=== PATIENT | female | born 1940 | race African-American/Black ===

== ENCOUNTER 2018-01-22 07:52 | Day surgery (SDC) | payer MEDICARE ==
[~2018-01-22] VITALS: Ht 167.6 cm; Wt 45.5 kg
[2018-01-22 08:10] VITALS: BP 154/76; PULSE 85; RESP 18; TEMP 98; O2SAT 99
[2018-01-22] MEDS ORDERED: ACCU20TA3 PO (08:17)
[2018-01-22] MEDS ORDERED: SYNT25TA PO (08:17)
[2018-01-22] MEDS ORDERED: METF500T PO (08:17)
[2018-01-22] MEDS ORDERED: DONE5TAB7 PO (08:17)
[2018-01-22] MEDS ORDERED: SODIUM CHLOR 0.9% 1000 ML INJ 1,000 ML IV SCH (08:30)
[2018-01-22 09:10] LABS: AUTOMATED NEUTROPHIL # 3.8 TH/MM3 (1.8-7.7); BASOPHIL % 0.8 % (0.0-2.0); EOSINOPHIL # 0.1 TH/MM3 (0-0.4); EOSINOPHIL % 0.9 % (0.0-4.0); HEMATOCRIT 35.7 % (35.0-46.0); HEMOGLOBIN 11.9 GM/DL (11.6-15.3); LYMPH % 25.4 % (9.0-44.0); LYMPHOCYTE # 1.5 TH/MM3 (1.0-4.8); MEAN CELL VOLUME 88.6 FL (80.0-100.0); MEAN CORPUSCULAR HEMOGLOBIN 29.5 PG (27.0-34.0); MEAN CORPUSCULAR HGB CONC 33.3 % (32.0-36.0); MEAN PLATELET VOLUME 8.9 FL (7.0-11.0); MONO % 8.1 % (0.0-8.0); MONOCYTE # 0.5 TH/MM3 (0-0.9); NEUT % 64.8 % (16.0-70.0); PLATELET COUNT 212 TH/MM3 (150-450); RED BLOOD COUNT 4.03 MIL/MM3 (4.00-5.30); RED CELL DISTRIBUTION WIDTH 13.2 % (11.6-17.2); WHITE BLOOD COUNT 5.9 TH/MM3 (4.0-11.0)
[2018-01-22 09:24] LABS: PROTHROMBIN TIME - PATIENT 10.4 SEC (9.8-11.6)
[2018-01-22 09:28] LABS: BICARBONATE 27.3 MEQ/L (21.0-32.0); CALCIUM 9.4 MG/DL (8.5-10.1); CREATININE 1.33 MG/DL (0.50-1.00)
[2018-01-22 10:25] VITALS: BP 151/69; PULSE 83; RESP 18; TEMP 97.3; O2SAT 99
--- NOTE | 2018-01-22 10:38 | RADRPT ---
EXAM DATE/TIME: 01/22/2018 10:11 [place] COMPARISON: No previous studies available for comparison. INDICATIONS : Patient with altered mental status in need of lumbar puncture. MEDICAL HISTORY : HTN, HLD, Diabetes, Breast cyst, Dementia, CKD, Hypothyroidism SURGICAL HISTORY : Colonoscopy, Breast surgery, Hysterectomy ENCOUNTER: Initial ACUITY: 3 months PAIN SCORE: 0/10 LUMBAR PUNCTURE TIME: 1012 hours FLUORO TIME: 1 minutes IMAGE SERIES: 1 ACCESS LEVEL: L2-3 OPENING PRESSURE: 15cm of water CLOSING PRESSURE: Not requested. FLUID: 15 cc of clear CSF was collected and sent to the laboratory for analysis. PROCEDURE : 1. Fluoroscopic guided lumbar puncture. 2. Recording of opening pressure. The risks, benefits and alternatives to the procedure were explained and verbal and written consent w as obtained. The site was prepped in sterile fashion. Full sterile technique was used, including ca p, mask, sterile gloves and gown and a large sterile sheet. Hand hygiene and 2% chlorhexidine and/or betadine/alcohol prep was utilized per protocol for cutaneous antisepsis. The skin and subcutaneous tissues were infiltrated with local anesthetic solution. With fluoroscopic guidance the lumbar thecal sac was punctured at the above level described above and the opening pressure was recorded. The above described fluid was removed without difficulty. The patient tolerated the procedure well and there were no complications. CONCLUSION: Uncomplicated fluoroscopically guided lumbar puncture with pressures as above. Inderjit Garcia MD on January 22, 2018 at 10:36 Board Certified Radiologist. This report was verified electronically.
[2018-01-22 11:40] VITALS: BP 138/61; PULSE 62; RESP 18; O2SAT 100
[2018-01-22 11:42] LABS: SUPERNATE COLOR TUBE #1 CLEAR (CLEAR)
[2018-01-22 11:43] LABS: CSF LYMPHOCYTES 0 %; CSF NEUTROPHILS 0 %; RBC TUBE #4 2 /MM3; WBC TUBE #4 0 /MM3 (0-10)
[2018-01-22 12:00] VITALS: BP 147/80; PULSE 82; RESP 20; O2SAT 99
[2018-01-25 10:33] LABS: CSF CRYPTOCOCCUS AG CONF ND (NOT DETECTD)
[2018-01-26 23:53] LABS: VDRL CSF NON-REACTIVE (NON-REACTVE)
[2018-01-27 23:53] LABS: CSF CRYPTOCOCCUS ANTIGEN NOT DETECTED (NEGATIVE)
== END 2018-01-22 12:10 | disposition home or self-care (01) ==
LOC: HROP 07:52 → HRIP 07:53 → HROP 12:10
PROVIDERS: ATTEND Internal Medicine
DX: R41.82 Altered mental status, unspecified (principal); F03.90 Unspecified dementia, unspecified severity, without behavioral disturbance, psychotic disturbance, mood disturbance, and anxiety; E03.9 Hypothyroidism, unspecified; E78.5 Hyperlipidemia, unspecified; N18.9 Chronic kidney disease, unspecified; I12.9 Hypertensive chronic kidney disease with stage 1 through stage 4 chronic kidney disease, or unspecified chronic kidney disease; E11.22 Type 2 diabetes mellitus with diabetic chronic kidney disease; Z79.84 Long term (current) use of oral hypoglycemic drugs
CPT/HCPCS: 62270; 77003; 80048; 82945; 84157; 85025; 85610; 85730; 86403; 86592; 87015; 87070; 87102; 87116; 87205; 87206; 87252; 89051